=== PATIENT | male | born 1940 | race Caucasian/White ===

== ENCOUNTER 2016-12-19 08:53 | Emergency (ER) | payer MEDICARE, MEDICAID ==
[2016-12-19 08:53] VITALS: BMI 25.0
[2016-12-19] MEDS ORDERED: LIDOCAINE 2% 5 ML (PRESERVATIVE FREE) VIAL INF ONE (09:05)
--- NOTE | 2016-12-19 09:09 | EDPRACDOC ---
- General Stated Complaint: FALL Time Seen by Provider: 12/19/16 08:58 - History of Present Illness Onset: this am HPI: C/O mechanical tripping and hit head on a picture frame on adjacent wall without actual fall, with laceration to right forehead. Denies any pain at this time. Not on blood thinner. Pain Severity: Reports: None Injuries/Pain Location: Reports: head (right forhead) Reason for Fall: Reports: tripped Loss of Consciousness: no loss of consciousness Associated Symptoms (Fall): Denies: denies symptoms, abdominal pain, chest pain , confusion, dizziness, headache, lightheadedness, muscle spasms, nausea/ vomiting, neck pain, ringing in ears, seizures, shortness of breath, slurred speech, trouble walking, vision changes, other Allergies/Adverse Reactions: Allergies No Known Allergies Allergy (Verified 12/19/16 09:13) Home Medications: Ambulatory Orders Cephalexin Monohydrate [Keflex] 500 mg PO Q6H #20 cap 12/19/16 Tramadol HCl 50 mg PO Q6 PRN #10 tablet 12/19/16 ED Past Medical History - History Reviewed Yes Nurses notes reviewed and agree except as marked - Patient Medical History Cardiac History: Reports: Hypercholesterolemia - Social Medical History Smoking Status: Never smoker EDM Review of Systems - Review of Systems ROS Negative Except as Marked: Yes All systems reviewed and were negative except as marked Integumentary: Wound (right forhead), Other (abscess on pos neck) - Physical Exam Constitutional: No apparent distress, Alert Oriented to: Time, Person, Place Last recorded Vital Signs: Oxygen Pulse Oxygen Saturation O2 Device Oxygen Flow Rate Fraction of Inspired Oxygen ( FIO2) - HEENT Head: Laceration (right forhead) Eye Exam: Normal Oropharynx: negative: Drooling Tympanic Membrane: Normal TMJ: Normal Nose: No Symptoms Reported Neck: Other (abscess on posterior neck) - Respiratory/Cardiovascular Respiratory: Normal - CTA Cardiovascular: Normal - GI Tenderness: Non tender - Musculoskeletal Back: Normal Extremities: Normal - Integumentary Skin: Normal - Neurologic Mood Description: Normal Thought: Coherent ED Injury/Fall Exam - Physical Exam Head Injury: lacerations (right forehead) Extremity Exam: no evidence of injury Skin: Normal ED Procedures - Incision and Drainage Informed of risks, benefits and alternatives described.: Yes Informed Consent Signed: Verbal Indication: Painful Mass Anesthetic: Lidocaine, with Epi Prep: Betadine Blade Size: 11 Incised Site drained: Reports: Blood, Seroma, Pus Incised site was: Not irrigated, Not Packed with Iodoform Notes: fluctuant part removed. remaining hard clumps left in place. - Suture/Laceration Suture #1 Right Upper Face Wound Length (cm): 4 Wound's Depth, Shape: irregular Wound Explored: clean Irrigated w/ Saline (ccs): 80 Betadine Prep?: Yes Anesthesia: 1% Lidocaine Volume Anesthetic (ccs): 6 Wound Debrided: minimal Wound Undermining: minimal Wound Margins: Revised Wound Repaired With: Sutures Suture Size/Type: 6:0, nylon Number of Sutures: 13 Layer Closure?: No Decision Time to Discharge: 10:49 - Departure Disposition: [facility] Facility Condition: Stable Final Diagnosis: Laceration, Abscess Instructions: Laceration (ED), Abscess (ED) Education/Counseling Given To: Patient Education/Counseling Given Regarding: Diagnosis, Treatment, Prognosis, Follow Up Referrals: Jessica Ann MD [Primary Care Provider] - One Week Prescriptions: Cephalexin Monohydrate [Keflex] 500 mg PO Q6H #20 cap Tramadol HCl 50 mg PO Q6 PRN #10 tablet PRN Reason: Pain Additional Instructions: Follow up with primary care and surgery for remaining hard clumps of purulent matter on posterior neck. take keflex to prevent infection. Return to ED for any new or worsening symptoms.
[2016-12-19 09:13] VITALS: TEMP 97.5
[2016-12-19] MEDS ORDERED: DIPHTHERIA AND TETANUS (ADULT) 0.5 ML SYR IM ONE ×2 (10:55→11:09)
[2016-12-19 12:34] VITALS: BP 131/75; PULSE 81
== END 2016-12-19 12:05 | disposition home or self-care (01) ==
LOC: ED 08:53
DX: S01.81XA Laceration without foreign body of other part of head, initial encounter (principal); W01.0XXA Fall on same level from slipping, tripping and stumbling without subsequent striking against object, initial encounter; Z23 Encounter for immunization; L02.11 Cutaneous abscess of neck
CPT/HCPCS: 10060; 12013; 90471; 90714; 99284; J2001